=== PATIENT | female | born 1985 | race Caucasian/White ===

== ENCOUNTER 2016-06-06 16:28 | Emergency (ER) | payer MEDICAID ==
[~2016-06-06] VITALS: Ht 152.4 cm; Wt 40.4 kg
[~2016-06-06 16:28] MED LIST: ALBU0.08 NEB; KEPP10002 PO; PRED-503 PO; VENTAER INH; ZITH250T PO
[2016-06-06 16:55] VITALS: BP 115/81; PULSE 74; RESP 16; TEMP 98.6; O2SAT 100
[2016-06-06] MEDS ORDERED: RESP: ALBUTEROL 2.5 MG/IPRATROPIUM 0.5 MG NEB (SCH) NEB ONE (17:30)
[2016-06-06] MEDS ORDERED: CYCL5TAB PO (17:37)
[2016-06-06] MEDS ORDERED: LACTCAP8 PO (17:37)
[2016-06-06] MEDS ORDERED: [UNRECOGNIZED DRUG - CODE] PO (17:37)
--- NOTE | 2016-06-06 18:26 | PD ---
HPI Chief Complaint: Chest Pain Time Seen by Provider: 17:20 Travel History International Travel<30 days: No Contact w/Intl Traveler<30days: No Traveled to known affect area: No History of Present Illness HPI Patient is a 30 year old female with history of Asthma and Epilepsy, who comes in complaining of chest pain that started last night. She says that she has been coughing for about a week, but last night started to feel a squeezing pain across her chest. She says she used her albuterol last night with some relief of her symptoms. She denies fever or chills. She denies recent travel. She denies leg swelling or leg pain. She does have an implanted control in her arm. She denies any stimulant use. She denies any history of sudden cardiac . PFSH Past Medical History Hx Anticoagulant Therapy: No ADHD: Yes Asthma: Yes Anxiety: Yes Depression: Yes Cardiovascular Problems: No Chemotherapy: No Cerebrovascular Accident: No Diabetes: No Diminished Hearing: No GERD: Yes Headaches: Yes (CLUSTER) Musculoskeletal: Yes (SCOLIOSIS) Neurologic: Yes (SEIZURES) Psychiatric: Yes (PTSD) Respiratory: Yes (asthma) Immunizations Current: Yes Migraines: Yes Seizures: Yes ?: Not LMP: 05/11/16 Menopausal: No : 3 Para: 2 Ovarian Cysts: Yes Past Surgical History Section: Yes (X2) Hysterectomy: No Social History Alcohol Use: Yes (OCC) Tobacco Use: Yes (OCCASIONAL CIGARETTE) Substance Use: No Allergies-Medications (Allergen,Severity, Reaction): Coded Allergies: Nystatin (Verified Allergy, Severe, RASH, 06/06/16) Zoloft (Verified Allergy, Severe, SHAKING, NAUSEA, 06/06/16) Shellfish (Verified Allergy, Mild, DIFFICULTY BREATHING, 06/06/16) Reported Meds & Prescriptions Reported Meds & Active Scripts Active Albuterol Neb (Albuterol Sulfate) 2.5 Mg/3 Ml Neb 2.5 Mg NEB Q4HR NEB While awake Ventolin Hfa 18 GM Inh (Albuterol Sulfate) 90 Mcg/Act Aer 2 Puff INH Q4H PRN Reported Flexeril (Cyclobenzaprine HCl) 5 Mg Tab 5 Mg PO TID PRN Protein 1 Pow Pow 1 Pkt PO DAILY Probiotic (Lactobacillus Acidophilus) 1 Cap Cap 1 Cap PO DAILY Keppra (Levetiracetam) 1,000 Mg Tab 1.5 Tab PO BID Review of Systems Except as stated in HPI: all other systems reviewed are Neg General / Constitutional: No: Fever, Chills HENT: No: Headaches, Lightheadedness Cardiovascular: Positive: Chest Pain or Discomfort Respiratory: Positive: Cough, No: Shortness of Breath Gastrointestinal: No: Nausea, Vomiting Musculoskeletal: No: Edema, Pain Skin: No Rash, No Change in Pigmentation Neurologic: No: Weakness, Dizziness Physical Exam Narrative GENERAL: Awake and alert, in no acute distress. SKIN: Warm and dry. HEAD: Atraumatic. Normocephalic. EYES: Pupils equal and round. No scleral icterus. ENT: Mucous membranes pink and moist. NECK: Trachea midline. No JVD. CARDIOVASCULAR: Regular rate and rhythm. No murmur appreciated. Chest wall tender to palpation. RESPIRATORY: No accessory muscle use. Clear to auscultation. Breath sounds equal bilaterally. GASTROINTESTINAL: Abdomen soft, non-tender, nondistended. MUSCULOSKELETAL: No obvious deformities. No clubbing. No cyanosis. No edema. No calf tenderness. NEUROLOGICAL: Awake and alert. No obvious cranial nerve deficits. Motor grossly within normal limits. Normal speech. PSYCHIATRIC: Appropriate mood and affect; insight and judgment normal. Data Data Last Documented VS Vital Signs Date Time Temp Pulse Resp B/P Pulse Ox O2 Delivery O2 Flow Rate FiO2 06/06/16 18:34 89 17 121/74 97 Room Air 06/06/16 16:55 98.6 Orders Complete Blood Count With Diff (06/06/16 17:27) Comprehensive Metabolic Panel (06/06/16 17:27) Troponin I (06/06/16 17:27) D-Dimer (06/06/16 17:27) Ed Urine Pregnancytest Poc (06/06/16 17:27) Chest, Pa & Lat (06/06/16 ) Albuterol-Ipratropium Neb (Duoneb Neb) (06/06/16 17:30) Ketorolac Inj (Toradol Inj) (06/06/16 18:45) Labs Laboratory Tests Test 06/06/16 18:21 White Blood Count 10.8 TH/MM3 Red Blood Count 4.90 MIL/MM3 Hemoglobin 14.6 GM/DL Hematocrit 43.6 % Mean Corpuscular Volume 88.9 FL Mean Corpuscular Hemoglobin 29.8 PG Mean Corpuscular Hemoglobin 33.5 % Concent Red Cell Distribution Width 12.6 % Platelet Count 240 TH/MM3 Mean Platelet Volume 8.8 FL Neutrophils (%) (Auto) 62.9 % Lymphocytes (%) (Auto) 28.6 % Monocytes (%) (Auto) 4.3 % Eosinophils (%) (Auto) 0.9 % Basophils (%) (Auto) 3.3 % Neutrophils # (Auto) 6.7 TH/MM3 Lymphocytes # (Auto) 3.1 TH/MM3 Monocytes # (Auto) 0.5 TH/MM3 Eosinophils # (Auto) 0.1 TH/MM3 Basophils # (Auto) 0.4 TH/MM3 CBC Comment DIFF FINAL Differential Comment D-Dimer Quantitative (PE/DVT) LESS THAN 0.19 MG/L FEU Sodium Level 140 MEQ/L Potassium Level 3.8 MEQ/L Chloride Level 106 MEQ/L Carbon Dioxide Level 23.7 MEQ/L Anion Gap 10 MEQ/L Blood Urea Nitrogen 14 MG/DL Creatinine 0.76 MG/DL Estimat Glomerular Filtration 89 ML/MIN Rate Random Glucose 82 MG/DL Calcium Level 9.1 MG/DL Total Bilirubin 0.5 MG/DL Aspartate Amino Transf 21 U/L (AST/SGOT) Alanine Aminotransferase 23 U/L (ALT/SGPT) Alkaline Phosphatase 74 U/L Troponin I LESS THAN 0.02 NG/ML Total Protein 7.3 GM/DL Albumin 4.1 GM/DL [facility] Medical Decision Making Medical Screen Exam Complete: Yes Emergency Medical Condition: Yes Interpretation(s) ECG shows normal sinus rhythm, no ST elevation or depression, normal intervals. Differential Diagnosis Costochondritis versus pneumonia versus bronchitis versus asthma exacerbation Narrative Course Patient is a 30-year-old female comes in complaining of squeezing chest pain. Exam shows chest is tender to palpation. IV established, labs sent. ECG shows no signs of ischemia. Patient given DuoNeb treatment. Given a dose of Toradol for pain. Chest x-ray performed. CXR shows hyperexpanded lungs, no infiltrate. Labs, including Troponin and D-dimer are negative. Patient states she smoked a cigarette from someone prior to this starting and this made her nervous. She feels better after medication. Will be discharged with prescription for prednisone. Advised to use her inhaler as needed. Advised to follow up with her PMD. Advised to return to the ED as needed for any worsening symptoms. Diagnosis Primary Impression: Asthma Qualified Code: J45.901 - Asthma with acute exacerbation, unspecified asthma severity Patient Instructions: Asthma (ED), General Instructions Additional Instructions: Follow up with your Primary doctor. Take the steroids for the next 4 days. Avoid smoking. return to the ED as needed for any worsening symptoms. Scripts Prednisone 50 Mg Tab50 Mg PO DAILY 4 Days Ref 0 Prov:Gremaine Carlson MD 06/06/16 Disposition: 01 DISCHARGE HOME Condition: Stable Germaine Carlson MD Jun 06, 2016 18:25
[2016-06-06 18:31] LABS: AUTOMATED NEUTROPHIL # 6.7 TH/MM3 (1.8-7.7); BASOPHIL # 0.4 TH/MM3 (0-0.2); BASOPHIL % 3.3 % (0.0-2.0); EOSINOPHIL # 0.1 TH/MM3 (0-0.4); EOSINOPHIL % 0.9 % (0.0-4.0); HEMATOCRIT 43.6 % (35.0-46.0); HEMO FLAGS DIFF FINAL; LYMPH % 28.6 % (9.0-44.0); LYMPHOCYTE # 3.1 TH/MM3 (1.0-4.8); MEAN CELL VOLUME 88.9 FL (80.0-100.0); MEAN CORPUSCULAR HEMOGLOBIN 29.8 PG (27.0-34.0); MEAN CORPUSCULAR HGB CONC 33.5 % (32.0-36.0); MONO % 4.3 % (0.0-8.0); NEUT % 62.9 % (16.0-70.0); PLATELET COUNT 240 TH/MM3 (150-450); RED CELL DISTRIBUTION WIDTH 12.6 % (11.6-17.2); WHITE BLOOD COUNT 10.8 TH/MM3 (4.0-11.0)
[2016-06-06 18:34] VITALS: BP 121/74; PULSE 89; RESP 17; O2SAT 97
[2016-06-06 18:40] LABS: CHLORIDE 106 MEQ/L (98-107); POTASSIUM 3.8 MEQ/L (3.5-5.1); SODIUM (NA) 140 MEQ/L (136-145)
[2016-06-06 18:43] LABS: ANION GAP 10 MEQ/L (5-15); BICARBONATE 23.7 MEQ/L (21.0-32.0); BLOOD UREA NITROGEN 14 MG/DL (7-18)
[2016-06-06] MEDS ORDERED: KETOROLAC TROMETHAMINE 30 MG/ML (IVP) VIAL IV PUSH ONE (18:45)
[2016-06-06 18:46] LABS: ALT (GPT) 23 U/L (10-53); AST (GOT) 21 U/L (15-37)
[2016-06-06 18:47] LABS: GLOMERULAR FILTRATION RATE 89 ML/MIN (>89)
[2016-06-06 18:48] LABS: TOTAL BILIRUBIN ADULT 0.5 MG/DL (0.2-1.0)
[2016-06-06 18:49] LABS: ALKALINE PHOSPHATASE 74 U/L (45-117)
[2016-06-06 19:05] VITALS: BP 136/88; PULSE 70; RESP 18; O2SAT 100
[2016-06-06] MEDS ORDERED: PRED50 PO (19:09)
--- NOTE | 2016-06-06 19:10 | RADHPO ---
EXAM DATE/TIME: 06/06/2016 18:01 [place] COMPARISON: CHEST PA & LAT, May 24, 2014, 15:36. INDICATIONS : Chest congestion. Cough. MEDICAL HISTORY : None. SURGICAL HISTORY : None. ENCOUNTER: Initial ACUITY: 4 - 6 days PAIN SCORE: 5/10 LOCATION: Bilateral chest FINDINGS: PA and lateral views of the chest demonstrate the lungs to be symmetrically aerated without evidence of mass, infiltrate or effusion. The cardiomediastinal contours are unremarkable. Osseous structure s are intact. CONCLUSION: 1. No active disease. Minimal scoliosis. Maximino Olvera MD on June 06, 2016 at 19:07 Board Certified Radiologist. This report was verified electronically.
[2016-06-06 19:40] VITALS: RESP 17
--- NOTE | 2016-06-07 14:31 | EKG ---
Date Performed: 06/06/2016 Time Performed: 16:35:06 PTAGE: 30 years EKG: Sinus rhythm Rightward axis QRS changes in V2 may be due to LVH but cannot rule out septal infarct Abnormal ECG PREVIOUS TRACING : 09/25/2012 14.19 DOCTOR: Hector Bennett Interpretating Date/Time 06/07/2016 14:28:14
== END 2016-06-06 19:44 | disposition home or self-care (01) ==
LOC: PHED 16:28
DX: J45.901 Unspecified asthma with (acute) exacerbation (principal); G40.909 Epilepsy, unspecified, not intractable, without status epilepticus; F17.210 Nicotine dependence, cigarettes, uncomplicated
CPT/HCPCS: 71020; 80053; 84484; 84703; 85025; 85379; 93005; 94664; 96374; 99285; J1885

== ENCOUNTER 2016-07-19 15:45 | Emergency (ER) | payer MEDICAID ==
[~2016-07-19] VITALS: Ht 152.4 cm; Wt 42.0 kg
[~2016-07-19 15:45] MED LIST changes: +CYCL5TAB PO; +LACTCAP8 PO; -PRED-503 PO; +PRED50 PO; -ZITH250T PO; +[UNRECOGNIZED DRUG - CODE] PO
[2016-07-19 15:48] VITALS: BP 113/81; PULSE 75; RESP 18; TEMP 98.5; O2SAT 99
[2016-07-19] MEDS ORDERED: MOME17I EACH NARE (16:24)
[2016-07-19] MEDS ORDERED: METH4PAK PO (16:24)
--- NOTE | 2016-07-19 16:44 | PD ---
HPI Chief Complaint: ENT Complaint Time Seen by Provider: 16:44 Travel History International Travel<30 days: No Contact w/Intl Traveler<30days: No Traveled to known affect area: No History of Present Illness HPI 30 year old female presents to the ED for evaluation of one week history of ear pain, sinus congestion, sore throat, nonproductive cough. She endorses chills, headache. She denies fever. States that she saw her primary care provider and was diagnosed with sinusitis, prescribed steroids and an unknown antibiotic. She states that she had this steroids filled but the pharmacy was out of the antibiotic. She states that the [facility] pharmacy called 3 other pharmacies who also were out of the antibiotic. PFSH Past Medical History Hx Anticoagulant Therapy: No ADHD: Yes Asthma: Yes Anxiety: Yes Depression: Yes Cardiovascular Problems: No Chemotherapy: No Cerebrovascular Accident: No Diabetes: No Diminished Hearing: No GERD: Yes Headaches: Yes (CLUSTER) Musculoskeletal: Yes (SCOLIOSIS) Psychiatric: Yes (PTSD) Immunizations Current: Yes Migraines: Yes Seizures: Yes ?: Not Menopausal: No : 3 Para: 2 Ovarian Cysts: Yes Past Surgical History Section: Yes (X2) Hysterectomy: No Social History Alcohol Use: Yes (OCC) Tobacco Use: Yes (OCCASIONAL CIGARETTE) Substance Use: No Allergies-Medications (Allergen,Severity, Reaction): Coded Allergies: Nystatin (Verified Allergy, Severe, RASH, 07/19/16) Zoloft (Verified Allergy, Severe, SHAKING, NAUSEA, 07/19/16) Shellfish (Verified Allergy, Mild, DIFFICULTY BREATHING, 07/19/16) Reported Meds & Prescriptions Reported Meds & Active Scripts Active Augmentin (Amoxicillin-Clavulanate) 500-125 mg Tab 500 Mg PO BID 10 Days Albuterol Neb (Albuterol Sulfate) 2.5 Mg/3 Ml Neb 2.5 Mg NEB Q4HR NEB While awake Ventolin Hfa 18 GM Inh (Albuterol Sulfate) 90 Mcg/Act Aer 2 Puff INH Q4H PRN Reported Nasonex Nasal Sterling (Mometasone Furoate) 50 Mcg/Act Naspr 2 Sterling EACH NARE DAILY Methylprednisolone Dosepak (Methylprednisolone) 4 Dspk 4 Mg PO DIRECTED Per Pharmacist Direction Keppra (Levetiracetam) 1,000 Mg Tab 1 Tab PO BID Review of Systems Except as stated in HPI: all other systems reviewed are Neg Physical Exam Narrative GENERAL: Well-nourished, well-developed petite white female in no acute distress. SKIN: Warm and dry. HEAD: Normocephalic. Atraumatic. EYES: No scleral icterus. No injection or drainage. PERRLA. EOMI. ENT: Pear[place] tympanic membranes bilaterally. Nasal mucosa is moist. Oropharynx without erythema, edema or exudate. TTP of the facial sinuses. NECK: Supple, trachea midline. No JVD or lymphadenopathy. CARDIOVASCULAR: Regular rate and rhythm without murmurs, gallops, or rubs. No carotid bruits. 2+ DP and radial pulses bilaterally. RESPIRATORY: Breath sounds clear and equal bilaterally. No accessory muscle use. GASTROINTESTINAL: Abdomen soft, non-tender, nondistended. + Bowel sounds MUSCULOSKELETAL: No cyanosis, or edema. Ambulatory, moves the extremities spontaneously. BACK: Nontender without obvious deformity. No CVA tenderness. Data Data Last Documented VS Vital Signs Date Time Temp Pulse Resp B/P Pulse Ox O2 Delivery O2 Flow Rate FiO2 07/19/16 15:48 98.5 75 18 113/81 99 Orders Amoxicil-Clavulanate (Augmentin) (07/19/16 17:00) [facility] Medical Decision Making Medical Screen Exam Complete: Yes Emergency Medical Condition: Yes Differential Diagnosis viral syndrome versus sinusitis versus pharyngitis versus medication refill versus other Narrative Course 30 year old female presents to the ED for evaluation of one week history of ear pain, sinus congestion, sore throat, nonproductive cough. She endorses chills, headache. She denies fever. States that she saw her primary care provider and was diagnosed with sinusitis, prescribed steroids and an unknown antibiotic. She states that she had this steroids filled but the pharmacy was out of the antibiotic. Vitals reviewed. Physical exam reveals a nontoxic-appearing white female in no acute distress. [place] tympanic membranes bilaterally. Nasal mucosa moist, clear rhinorrhea. Oropharynx without erythema, edema, exudate. Tender to palpation of the facial sinuses. No anterior cervical lymphadenopathy. Patient was prescribed Augmentin 500 mg twice a day 10 days. First dose administered in the emergency room. She is instructed to take all other medications as prescribed, follow up with primary care provider. She indicated understanding of instructions. She is agreeable to the plan. She is stable and discharged home. Diagnosis Primary Impression: Sinusitis Qualified Code: J01.00 - Acute maxillary sinusitis, recurrence not specified Referrals: Ear / Nose / Throat Specialist Patient Instructions: General Instructions, Sinusitis (ED) Additional Instructions: Take all medication as prescribed, even if your symptoms resolve during the course of treatment. Follow up with your primary care provider. Return to the ED for any urgent or emergent medical condition. Med/Other Pt SpecificInfo: Prescription(s) given Scripts Amoxicillin-Clavulanate (Augmentin)500-125 mg [id number] Mg PO BID 10 Days Ref 0 Prov:Sharita Navarro MD 07/19/16 Disposition: 01 DISCHARGE HOME Condition: Stable Silvia Hernandez Jul 19, 2016 16:44
[2016-07-19] MEDS ORDERED: AUGM500T7 PO (16:53)
[2016-07-19] MEDS ORDERED: AMOXICILLIN/CLAVULANATE K 500 MG TAB PO ONE (17:00)
== END 2016-07-19 17:27 | disposition home or self-care (01) ==
LOC: PHED 15:45 → PHEFT 17:27
DX: J01.00 Acute maxillary sinusitis, unspecified (principal); J45.909 Unspecified asthma, uncomplicated; K21.9 Gastro-esophageal reflux disease without esophagitis; F41.9 Anxiety disorder, unspecified; F32.9 Major depressive disorder, single episode, unspecified; F43.10 Post-traumatic stress disorder, unspecified; F17.210 Nicotine dependence, cigarettes, uncomplicated
CPT/HCPCS: 99283

== ENCOUNTER 2016-10-22 13:07 | Emergency (ER) | payer MEDICAID ==
[~2016-10-22] VITALS: Ht 152.4 cm; Wt 40.1 kg
[~2016-10-22 13:07] MED LIST changes: +AUGM500T7 PO; -CYCL5TAB PO; -LACTCAP8 PO; +METH4PAK PO; +MOME17I EACH NARE; -PRED50 PO; -[UNRECOGNIZED DRUG - CODE] PO
[2016-10-22 13:14] VITALS: BP 121/96; PULSE 82; RESP 16; TEMP 98.2; O2SAT 97
[2016-10-22] MEDS ORDERED: MAGN1TAB14 PO (13:30)
[2016-10-22] MEDS ORDERED: RIBO1TAB2 PO (13:30)
[2016-10-22] MEDS ORDERED: ETON1IMP I-DERMAL (13:30)
[2016-10-22] MEDS ORDERED: TYLETAB34 PO (13:38)
--- NOTE | 2016-10-22 13:41 | PD ---
HPI Chief Complaint: Headache Time Seen by Provider: 13:30 Travel History International Travel<30 days: No Contact w/Intl Traveler<30days: No Traveled to known affect area: No History of Present Illness HPI The patient was seen and examined in the presence of the nurse. This patient complains of pain in face. She gets this frequently. She has ENT physician. He does not have purulent discharge or fever or injury. No fever. Symptoms severity is mild to moderate. PFSH Past Medical History Hx Anticoagulant Therapy: No ADHD: Yes Asthma: Yes Anxiety: Yes Depression: Yes Cardiovascular Problems: No Chemotherapy: No Cerebrovascular Accident: No Diabetes: No Diminished Hearing: No GERD: Yes Headaches: Yes (CLUSTER) Musculoskeletal: Yes (SCOLIOSIS) Psychiatric: Yes (PTSD) Immunizations Current: Yes Migraines: Yes Seizures: Yes Influenza Vaccination: No ?: Not Menopausal: No : 3 Para: 2 Ovarian Cysts: Yes Past Surgical History Section: Yes (X2) Hysterectomy: No Social History Alcohol Use: Yes (OCC) Tobacco Use: Yes (OCCASIONAL CIGARETTE) Substance Use: No Allergies-Medications (Allergen,Severity, Reaction): Coded Allergies: Nystatin (Verified Allergy, Severe, RASH, 10/22/16) Zoloft (Verified Allergy, Severe, SHAKING, NAUSEA, 10/22/16) Shellfish (Verified Allergy, Mild, DIFFICULTY BREATHING, 10/22/16) Reported Meds & Prescriptions Reported Meds & Active Scripts Active Tylenol-Codeine #3 (Acetaminophen-Codeine) 300-30 mg Tab 1 Tab PO Q6HR PRN Reported Vitamin B-2 (Riboflavin) 100 Mg Tab Unknown Dose PO DAILY Magnesium 400 Mg Tab 400 Mg PO DAILY Nexplanon Implant (Etonogestrel Implant) 68 Mg Imp 68 Mg I-DERMAL ONCE Keppra (Levetiracetam) 1,000 Mg Tab 0.5 Tab PO BID Review of Systems General / Constitutional: No: Fever Cardiovascular: No: Chest Pain or Discomfort Respiratory: No: Cough Gastrointestinal: No: Vomiting Physical Exam Narrative NEUROLOGICAL: Awake and alert. Pupils are equal round and reactive. Motor and sensory grossly within normal limits. Five out of 5 muscle strength in all muscle groups. Normal speech. NECK: Symmetrical appearance, midline trachea. No mass or crepitus. Thyroid without enlargement, tenderness, or mass. SKIN: Focused skin assessment reveals no rash or ulcers. Skin is warm and dry. Palpation shows no induration or nodules. GASTROINTESTINAL: Abdomen soft, non-tender, nondistended. Positive bowel sounds. No hepato-splenomegaly, or palpable masses. No guarding. Data Data Last Documented VS Vital Signs Date Time Temp Pulse Resp B/P Pulse Ox O2 Delivery O2 Flow Rate FiO2 10/22/16 13:14 98.2 82 16 121/96 97 MDM Medical Decision Making Medical Screen Exam Complete: Yes Emergency Medical Condition: Yes Medical Record Reviewed: Yes Differential Diagnosis Sinusitis, chronic pain, tic [place] Narrative Course I have reviewed the patient's electronic medical record. Patient is neurologically intact. No red flags to suggest emergent imaging is indicated. I wrote her 10 Tylenol 3 to use as needed Stable for outpatient follow-up Diagnosis Primary Impression: Chronic facial pain Additional Impression: Headache Qualified Code: R51 - Nonintractable episodic headache, unspecified headache type Additional Instructions: The patient was advised to follow up with their physician and return if they worsen. The patient was warned about potential sedation for the medications they will receive on prescription. Med/Other Pt SpecificInfo: Prescription(s) given Scripts Acetaminophen-Codeine (Tylenol-Codeine #3)300-30 mg Tab1 Tab PO Q6HR PRN (PAIN) #10 TAB Ref 0 Prov:Chris Goss MD 10/22/16 Disposition: 01 DISCHARGE HOME Condition: Stable Chris Goss MD Oct 22, 2016 13:41
== END 2016-10-22 13:50 | disposition home or self-care (01) ==
LOC: PHED 13:07
DX: R51 Headache (principal); J45.909 Unspecified asthma, uncomplicated; K21.9 Gastro-esophageal reflux disease without esophagitis
CPT/HCPCS: 99283

== ENCOUNTER 2016-12-18 08:12 | Emergency (ER) | payer MEDICAID ==
[~2016-12-18] VITALS: Ht 152.4 cm; Wt 40.5 kg
[~2016-12-18 08:12] MED LIST changes: -ALBU0.08 NEB; -AUGM500T7 PO; +ETON1IMP I-DERMAL; +MAGN1TAB14 PO; -METH4PAK PO; -MOME17I EACH NARE; +RIBO1TAB2 PO; +TYLETAB34 PO; -VENTAER INH
[2016-12-18 08:16] VITALS: BP 115/77; PULSE 75; RESP 16; TEMP 97.8; O2SAT 99
--- NOTE | 2016-12-18 08:41 | PD ---
HPI Chief Complaint: Abdominal Pain Time Seen by Provider: 08:31 Travel History International Travel<30 days: No Contact w/Intl Traveler<30days: No Traveled to known affect area: No History of Present Illness HPI The patient was seen and examined in the presence of the nurse. This patient complains of abdominal pain. Location is right lower quadrant. Severity is moderate. Duration is 2-3 days. No alleviating factors. She denies fever or diarrhea. She does not think she is . PFSH Past Medical History Hx Anticoagulant Therapy: No ADHD: Yes Asthma: Yes Anxiety: Yes Depression: Yes Cardiovascular Problems: No Chemotherapy: No Cerebrovascular Accident: No Diabetes: No Diminished Hearing: No GERD: Yes Headaches: Yes (CLUSTER) Musculoskeletal: Yes (SCOLIOSIS) Neurologic: Yes (SEIZURES) Psychiatric: Yes (PTSD) Respiratory: Yes (asthma) Immunizations Current: Yes Migraines: Yes Seizures: Yes ?: Not LMP: LAST MONTH Menopausal: No : 3 Para: 3 Miscarriage: 1 Ovarian Cysts: Yes Past Surgical History Section: Yes (X2) Hysterectomy: No Social History Alcohol Use: Yes (OCC) Tobacco Use: No (denies) Substance Use: No Allergies-Medications (Allergen,Severity, Reaction): Coded Allergies: nystatin (Unverified Allergy, Severe, RASH, 12/18/16) sertraline (Unverified Allergy, Severe, SHAKING, NAUSEA, 12/18/16) shellfish derived (Unverified Allergy, Mild, DIFFICULTY BREATHING, 12/18/16) Reported Meds & Prescriptions Reported Meds & Active Scripts Active Tylenol-Codeine #3 (Acetaminophen-Codeine) 300-30 mg Tab 1 Tab PO Q6HR PRN Reported Vitamin B-2 (Riboflavin) 100 Mg Tab Unknown Dose PO DAILY Magnesium 400 Mg Tab 400 Mg PO DAILY Nexplanon Implant (Etonogestrel Implant) 68 Mg Imp 68 Mg I-DERMAL ONCE Keppra (Levetiracetam) 1,000 Mg Tab 0.5 Tab PO BID Review of Systems General / Constitutional: No: Fever Eyes: No: Visual changes HENT: No: Headaches Cardiovascular: No: Chest Pain or Discomfort Respiratory: No: Shortness of Breath Gastrointestinal: Positive: Nausea, Abdominal Pain Genitourinary: Positive: Pelvic Pain, No: Dysuria Musculoskeletal: No: Pain Skin: No Rash Neurologic: No: Weakness Psychiatric: No: Depression Endocrine: No: Polydipsia Hematologic/Lymphatic: No: Easy Bruising Physical Exam Narrative GENERAL: Well-nourished, well-developed patient with abdominal pain. SKIN: Focused skin assessment reveals no rash and nodules. Skin is Warm and dry. HEAD: Atraumatic. Normocephalic. EYES: Pupils equal and round. No scleral icterus. No injection or drainage. ENT: No nasal bleeding or discharge. Mucous membranes pink and moist. NECK: Trachea midline. No JVD. CARDIOVASCULAR: Regular rate and rhythm. No murmur appreciated. RESPIRATORY: No accessory muscle use. Clear to auscultation. Breath sounds equal bilaterally. GASTROINTESTINAL: Abdomen soft, right lower quadrant is tender without rebound or guarding, nondistended. Hepatic and splenic margins not palpable. MUSCULOSKELETAL: No obvious deformities. No clubbing. No cyanosis. No edema. NEUROLOGICAL: Awake and alert. No obvious cranial nerve deficits. Motor grossly within normal limits. Normal speech. PSYCHIATRIC: Appropriate mood and affect; insight and judgment normal. Pelvic: Has a scant white vaginal discharge but no cervical motion tenderness. No bleeding. No adnexal mass Data Data Last Documented VS Vital Signs Date Time Temp Pulse Resp B/P (MAP) Pulse Ox O2 Delivery O2 Flow Rate FiO2 12/18/16 08:16 97.8 75 16 115/77 (90) 99 Orders Orders Ed Urine Pregnancytest Poc (12/18/16 08:38) Urinalysis - C+S If Indicated (12/18/16 08:38) Iv Access Insert/Monitor (12/18/16 08:38) Complete Blood Count With Diff (12/18/16 08:38) Basic Metabolic Panel (Bmp) (12/18/16 08:38) Ct Abd/Pel W Iv Contrast(Rout) (12/18/16 ) Wet Prep Profile (12/18/16 08:49) Gc And Chlamydia Pcr (12/18/16 08:49) Iohexol 350 Inj (Omnipaque 350 Inj) (12/18/16 09:52) Urine Culture (12/18/16 08:55) Labs Laboratory Tests Test 12/18/16 08:55 White Blood Count 5.9 TH/MM3 Red Blood Count 4.85 MIL/MM3 Hemoglobin 14.4 GM/DL Hematocrit 42.8 % Mean Corpuscular Volume 88.3 FL Mean Corpuscular Hemoglobin 29.7 PG Mean Corpuscular Hemoglobin Concent 33.7 % Red Cell Distribution Width 12.6 % Platelet Count 195 TH/MM3 Mean Platelet Volume 8.6 FL Neutrophils (%) (Auto) 57.3 % Lymphocytes (%) (Auto) 33.8 % Monocytes (%) (Auto) 4.5 % Eosinophils (%) (Auto) 2.5 % Basophils (%) (Auto) 1.9 % Neutrophils # (Auto) 3.4 TH/MM3 Lymphocytes # (Auto) 2.0 TH/MM3 Monocytes # (Auto) 0.3 TH/MM3 Eosinophils # (Auto) 0.1 TH/MM3 Basophils # (Auto) 0.1 TH/MM3 CBC Comment DIFF FINAL Differential Comment Urine Collection Type CLEAN CATCH Urine Color YELLOW Urine Turbidity CLEAR Urine pH 6.0 Urine Specific Maud 1.016 Urine Protein NEG mg/dL Urine Glucose (UA) NEG mg/dL Urine Ketones NEG mg/dL Urine Occult Blood NEG Urine Nitrite NEG Urine Bilirubin NEG Urine Leukocyte Esterase NEG Urine WBC 3-5 /hpf Urine Squamous Epithelial Cells > 8 /hpf Urine Amorphous Sediment FEW Urine Bacteria MOD /hpf Microscopic Urinalysis Comment CULTURE INDICATED Urine Collection Time 0855 Clue Cells (Wet Prep) NONE SEEN Vaginal Trichomonas (Wet Prep) NONE SEEN Vaginal Yeast (Wet Prep) NONE SEEN Blood Urea Nitrogen 13 MG/DL Creatinine 0.71 MG/DL Random Glucose 85 MG/DL Calcium Level 9.1 MG/DL Sodium Level 137 MEQ/L Potassium Level 3.9 MEQ/L Chloride Level 106 MEQ/L Carbon Dioxide Level 24.3 MEQ/L Anion Gap 7 MEQ/L Estimat Glomerular Filtration Rate 96 ML/MIN [facility] Medical Decision Making Medical Screen Exam Complete: Yes Emergency Medical Condition: Yes Medical Record Reviewed: Yes Differential Diagnosis Differential diagnosis includes PID, ectopic , ovarian cyst, ovarian torsion, endometriosis, appendicitis Narrative Course I have reviewed the patient's electronic medical record. He has been here for asthma multiple times and related issues Urine is negative Urinalysis is not suspicious for infection IV placed CBC is normal Metabolic profile is normal CT of abdomen and pelvis with IV contrast done to evaluate for appendicitis. Exam is not convincing for PID. wet prep is negative GC and chlam swab sent CT results are reviewed with the patient. There is incidental renal cysts. Appendix not definitively seen but there is no inflammatory changes in the right lower quadrant to suggest appendicitis. Clinical suspicion after CT scan is very low. When went to reevaluate her she is resting completely without pain He is to call her primary physician Tuesday for follow-up and return if she worsens Diagnosis Primary Impression: Abdominal pain Qualified Codes: R10.31 - Right lower quadrant pain Additional Instructions: The patient was advised to follow up with their physician and return if they worsen. Med/Other Pt SpecificInfo: Other Disposition: DISCHARGE HOME Condition: Stable Chris Goss MD Dec 18, 2016 08:41
[2016-12-18 09:06] LABS: AUTOMATED NEUTROPHIL # 3.4 TH/MM3 (1.8-7.7); BASOPHIL # 0.1 TH/MM3 (0-0.2); BASOPHIL % 1.9 % (0.0-2.0); EOSINOPHIL # 0.1 TH/MM3 (0-0.4); EOSINOPHIL % 2.5 % (0.0-4.0); HEMATOCRIT 42.8 % (35.0-46.0); HEMO FLAGS DIFF FINAL; LYMPH % 33.8 % (9.0-44.0); MEAN CELL VOLUME 88.3 FL (80.0-100.0); MEAN CORPUSCULAR HEMOGLOBIN 29.7 PG (27.0-34.0); MEAN CORPUSCULAR HGB CONC 33.7 % (32.0-36.0); MONO % 4.5 % (0.0-8.0); NEUT % 57.3 % (16.0-70.0); PLATELET COUNT 195 TH/MM3 (150-450); RED BLOOD COUNT 4.85 MIL/MM3 (4.00-5.30); RED CELL DISTRIBUTION WIDTH 12.6 % (11.6-17.2); WHITE BLOOD COUNT 5.9 TH/MM3 (4.0-11.0)
[2016-12-18 09:14] LABS: POTASSIUM 3.9 MEQ/L (3.5-5.1)
[2016-12-18 09:17] LABS: BICARBONATE 24.3 MEQ/L (21.0-32.0)
[2016-12-18 09:35] LABS: BLOOD, URINE NEG (NEG); GLUCOSE,URINE NEG (NEG); KETONE, URINE NEG (NEG); NITRITE,URINE NEG (NEG)
[2016-12-18 09:50] LABS: METHOD OF COLLECTION CLEAN CATCH; URINE COLOR YELLOW (YELLW/STRAW)
[2016-12-18 09:52] LABS: BACTERIA, URINE MOD /hpf; COMMENT (UR) CULTURE INDICATED; COMMENT2 (UR) MUCOUS PRESENT; CULTURE IF INDICATED CULTURE INDICATED; SQUAMOUS EPITHELIAL CELL URINE > 8 /hpf (0-5)
[2016-12-18] MEDS ORDERED: IOHEXOL 350 MG/ML 10 ML VIAL (for RAD DIAG) IVCONTRAST ONE (09:52)
--- NOTE | 2016-12-18 10:02 | RADRPT ---
EXAM DATE/TIME: 12/18/2016 09:41 [place] COMPARISON: CT ABDOMEN & PELVIS W CONTRAST, May 15, 2007, 10:53. INDICATIONS : Right lower quadrant pain, nausea, vaginal discharge. IV CONTRAST: 71 cc Omnipaque 350 (iohexol) IV ORAL CONTRAST: No oral contrast ingested. RADIATION DOSE: 4.44 CTDIvol (mGy) MEDICAL HISTORY : Seizures. Asthma, scoliosis, ovarian cysts. SURGICAL HISTORY : None. ENCOUNTER: Initial ACUITY: 3 days PAIN SCALE: 6/10 LOCATION: Right lower quadrant TECHNIQUE: Volumetric scanning of the abdomen and pelvis was performed. Using automated exposure control and ad justment of the mA and/or kV according to patient size, radiation dose was kept as low as reasonably achievable to obtain optimal diagnostic quality images. DICOM format image data is available electro nically for review and comparison. FINDINGS: Lung bases are clear. Osseous structures are intact. No pleural or pericardial effusions are seen. Li vickey, gallbladder, left kidney, spleen, pancreas, adrenal glands are normal in appearance. There is a tiny cyst at the upper pole right kidney measuring 7 mm, and a cyst at the midpole measuring 7.5 mm. There are 2 nonobstructing calculi at the midpole of the right kidney measuring 3.1 mm and 1.8 mm. Th ere is no adenopathy or aneurysm. Urinary bladder, uterus unremarkable. No evidence of bowel obstruct ion, free fluid, or free air. A left ovarian cyst is suspected measuring 1.9 cm. No inflammatory raza ges are seen within the abdomen or pelvis. The appendix is no definitively visualized. CONCLUSION: 1. Simple cyst left ovary. 2. Nonobstructing right renal calculi and simple cysts right kidney. 3. No inflammatory changes are present. Iglesia Bhatt MD on December 18, 2016 at 9:54 Board Certified Radiologist. This report was verified electronically.
[2016-12-18 15:52] LABS: CHLAMYDIA PCR NOT DETECTED (NOT DETECT); NEISSERIA PCR NOT DETECTED (NOT DETECT)
== END 2016-12-18 10:26 | disposition home or self-care (01) ==
LOC: PHED 08:12
DX: R10.31 Right lower quadrant pain (principal); Z86.59 Personal history of other mental and behavioral disorders; Z87.09 Personal history of other diseases of the respiratory system; Z87.19 Personal history of other diseases of the digestive system; Z87.39 Personal history of other diseases of the musculoskeletal system and connective tissue; Z86.69 Personal history of other diseases of the nervous system and sense organs
CPT/HCPCS: 74177; 80048; 81001; 84703; 85025; 87086; 87210; 87491; 87591; 99285; Q9967

== ENCOUNTER 2017-04-14 17:17 | Emergency (ER) | payer MEDICAID ==
[~2017-04-14] VITALS: Ht 152.4 cm; Wt 42.0 kg
[~2017-04-14 17:17] MED LIST changes: -MAGN1TAB14 PO; +MAGN400T3 PO
[2017-04-14 17:21] VITALS: BP 112/61; PULSE 81; RESP 16; TEMP 98.4; O2SAT 100
[2017-04-14] MEDS ORDERED: PRED20 PO (18:07)
[2017-04-14] MEDS ORDERED: AZIT250T3 PO (18:07)
[2017-04-14] MEDS ORDERED: ALBU0.08 NEB (18:07)
--- NOTE | 2017-04-14 18:08 | PD ---
HPI Chief Complaint: Cold / Flu Symptoms Time Seen by Provider: 17:54 Travel History International Travel<30 days: No Contact w/Intl Traveler<30days: No Traveled to known affect area: No History of Present Illness HPI 31-year-old female here for evaluation of productive cough, wheezing, fever 3 days. She reports symptoms started as a mild URI with sore throat, nasal congestion, cough. All symptoms resolved with the exception of the cough. She now has wheezing and intermittent shortness of breath with coughing episodes. She reports colored sputum. Subjective fevers. History of asthma. No sick contacts at home. Severity is moderate. No aggravating factors. Mild improvement with home albuterol nebs. PFSH Past Medical History Hx Anticoagulant Therapy: No ADHD: Yes Asthma: Yes Anxiety: Yes Depression: Yes Cardiovascular Problems: No Chemotherapy: No Cerebrovascular Accident: No Diabetes: No Diminished Hearing: No GERD: Yes Headaches: Yes (CLUSTER) Musculoskeletal: Yes (SCOLIOSIS) Neurologic: Yes (SEIZURES) Psychiatric: Yes (PTSD) Respiratory: Yes (asthma) Immunizations Current: Yes Migraines: Yes Seizures: Yes Tetanus Vaccination: > 5 Years Influenza Vaccination: No ?: Not LMP: 2 wks ago Menopausal: No : 3 Para: 3 Miscarriage: 1 Ovarian Cysts: Yes Past Surgical History Section: Yes (X2) Hysterectomy: No Social History Alcohol Use: Yes (OCC) Tobacco Use: No Substance Use: No Allergies-Medications (Allergen,Severity, Reaction): Coded Allergies: nystatin (Unverified Allergy, Severe, RASH, 04/14/17) sertraline (Unverified Allergy, Severe, SHAKING, NAUSEA, 04/14/17) shellfish derived (Unverified Allergy, Mild, DIFFICULTY BREATHING, ) Reported Meds & Prescriptions Reported Meds & Active Scripts Active Tylenol-Codeine #3 (Acetaminophen-Codeine) 300-30 mg Tab 1 Tab PO Q6HR PRN Reported Nexplanon Implant (Etonogestrel Implant) 68 Mg Imp 68 Mg I-DERMAL ONCE Keppra (Levetiracetam) 1,000 Mg Tab 0.5 Tab PO BID Review of Systems Except as stated in HPI: all other systems reviewed are Neg General / Constitutional: Positive: Fever Eyes: No: Visual changes HENT: No: Headaches Cardiovascular: No: Chest Pain or Discomfort Respiratory: Positive: Cough, Shortness of Breath, Wheezing Gastrointestinal: No: Abdominal Pain Genitourinary: No: Dysuria Physical Exam Narrative GENERAL: Alert female. Appears ill but not toxic SKIN: Warm and dry. HEAD: Normocephalic. EYES: No injection or drainage. NECK: Supple, trachea midline. No JVD or lymphadenopathy. CARDIOVASCULAR: Regular rate and rhythm without murmurs, gallops, or rubs. RESPIRATORY: Breath sounds equal bilaterally. No accessory muscle use. Mild expiratory wheezes. Rhonchorous cough. GASTROINTESTINAL: Abdomen soft, non-tender, nondistended. Data Data Last Documented VS Vital Signs Date Time Temp Pulse Resp B/P (MAP) Pulse Ox O2 Delivery O2 Flow Rate FiO2 04/14/17 17:21 98.4 81 16 112/61 (78) 100 MDM Medical Decision Making Medical Screen Exam Complete: Yes Emergency Medical Condition: Yes Differential Diagnosis Pneumonia, bronchitis, influenza, URI Narrative Course 31-year-old female here with reported productive cough, wheezing, fever times a days. Her vital signs are stable. She is afebrile. No respiratory distress. Mild expiratory wheezes which clear with cough. Given the length of her symptoms she will be treated with azithromycin, prednisone, albuterol. Instructed to follow-up with her PCP she agrees to plan Diagnosis Primary Impression: Bronchitis Additional Impression: Reactive airway disease Qualified Codes: J45.909 - Unspecified asthma, uncomplicated Referrals: [facility] Additional Instructions: Take the medications as prescribed. Albuterol inhaler/nebulizer every 4-6 hours as needed. Stay well hydrated. Follow-up with her primary doctor for recheck Scripts Albuterol Neb (Albuterol Neb) 2.5 Mg/3 Ml Neb 2.5 MG NEB Q4HR NEB Y for SHORTNESS OF BREATH, #60 NEBULE 0 Refills Prov: Vane SanchezP 04/14/17 Prednisone (Prednisone) 20 Mg Tab 40 MG PO DAILY, #10 TAB 0 Refills Take 40 mg (2 tablets) daily for 5 days Prov: Vane Sanchez 04/14/17 Azithromycin (Azithromycin) 250 Mg Tab 250 MG PO DIRECTED for Infection, #6 TAB 0 Refills Take 2 tabs (500 mg) on day 1 then 1 tab daily x 4 days. Prov: Vane Sanchez 04/14/17 Disposition: 01 DISCHARGE HOME Condition: Stable Vane Sanchez Apr 14, 2017 18:08
== END 2017-04-14 18:17 | disposition home or self-care (01) ==
LOC: PHEFT 17:17
DX: J40 Bronchitis, not specified as acute or chronic (principal); J45.909 Unspecified asthma, uncomplicated; K21.9 Gastro-esophageal reflux disease without esophagitis; R56.9 Unspecified convulsions
CPT/HCPCS: 99284

== ENCOUNTER 2017-05-13 22:49 | Emergency (ER) | payer MEDICAID ==
[~2017-05-13] VITALS: Ht 152.4 cm; Wt 43.0 kg
[~2017-05-13 22:49] MED LIST changes: +ALBU0.08 NEB; +AZIT250T3 PO; -MAGN400T3 PO; +PRED20 PO; -RIBO1TAB2 PO
[2017-05-13 22:52] VITALS: BP 118/73; PULSE 76; RESP 18; TEMP 98.1; O2SAT 98
--- NOTE | 2017-05-13 23:12 | PD ---
HPI Chief Complaint: Abdominal Pain Time Seen by Provider: 23:09 Travel History International Travel<30 days: No Contact w/Intl Traveler<30days: No Traveled to known affect area: No History of Present Illness HPI 31-year-old female patient presents to the ER today, is having several days' history of lower abdominal discomfort, nausea, burning on urination, and had been seen by [facility] today and diagnosed with a UTI, has a prescription for Macrobid which she has not yet had a chance to get from the pharmacy. She comes to the ER today because she states that she is having worsening in her lower abdominal discomfort. She denies any unusual vaginal discharge, or any new symptoms. Pain is currently rated as 7 out of 10. Modifying Factors: None Associated Signs & Symptoms: Lower abdominal discomfort, nausea, dysuria Risk Factors: Diagnosed with UTI PFSH Past Medical History Hx Anticoagulant Therapy: No ADHD: Yes Asthma: Yes Anxiety: Yes Depression: Yes Cardiovascular Problems: No Chemotherapy: No Cerebrovascular Accident: No Diabetes: No Diminished Hearing: No GERD: Yes Headaches: Yes (CLUSTER) Musculoskeletal: Yes (SCOLIOSIS) Neurologic: Yes (SEIZURES) Psychiatric: Yes (PTSD) Respiratory: Yes (Asthma ) Immunizations Current: Yes Migraines: Yes Seizures: Yes LMP: 05/09/2017 Menopausal: No : 3 Para: 3 Miscarriage: 1 Ovarian Cysts: Yes Past Surgical History Section: Yes (X2) Hysterectomy: No Social History Alcohol Use: Yes (OCC) Tobacco Use: No Substance Use: No Allergies-Medications (Allergen,Severity, Reaction): Coded Allergies: nystatin (Verified Allergy, Severe, RASH, 05/13/17) sertraline (Verified Allergy, Severe, SHAKING, NAUSEA, 05/13/17) shellfish derived (Verified Allergy, Mild, DIFFICULTY BREATHING, 05/13/17) Reported Meds & Prescriptions Reported Meds & Active Scripts Active Albuterol Neb (Albuterol Sulfate) 2.5 Mg/3 Ml Neb 2.5 Mg NEB Q4HR NEB PRN Prednisone 20 Mg Tab 40 Mg PO DAILY Take 40 mg (2 tablets) daily for 5 days Azithromycin 250 Mg Tab 250 Mg PO DIRECTED Take 2 tabs (500 mg) on day 1 then 1 tab daily x 4 days. Tylenol-Codeine #3 (Acetaminophen-Codeine) 300-30 mg Tab 1 Tab PO Q6HR PRN Reported Nexplanon Implant (Etonogestrel Implant) 68 Mg Imp 68 Mg I-DERMAL ONCE Keppra (Levetiracetam) 1,000 Mg Tab 0.5 Tab PO BID Review of Systems Except as stated in HPI: all other systems reviewed are Neg Physical Exam Narrative GENERAL: Well-developed young female patient currently in mild distress. Awake and oriented 3. SKIN: Focused skin assessment warm/dry. HEAD: Atraumatic. Normocephalic. EYES: Pupils equal and round. No scleral icterus. No injection or drainage. ENT: No nasal bleeding or discharge. Mucous membranes pink and moist. NECK: Trachea midline. No JVD. CARDIOVASCULAR: Regular rate and rhythm. No murmur appreciated. RESPIRATORY: No accessory muscle use. Clear to auscultation. Breath sounds equal bilaterally. GASTROINTESTINAL: Abdomen soft, mild suprapubic tenderness without guarding or rebound, nondistended. Hepatic and splenic margins not palpable. GENITOURINARY: Normal external genitalia without lesions or erythema. Vaginal vault without blood or drainage. Cervical os was closed without drainage. No cervical motion tenderness. Uterus nontender and nonenlarged. Bilateral adnexa nontender without masses. MUSCULOSKELETAL: No obvious deformities. No clubbing. No cyanosis. No edema. NEUROLOGICAL: Awake and alert. No obvious cranial nerve deficits. Motor grossly within normal limits. Normal speech. PSYCHIATRIC: Appropriate mood and affect; insight and judgment normal. Data Data Last Documented VS Vital Signs Date Time Temp Pulse Resp B/P (MAP) Pulse Ox O2 Delivery O2 Flow Rate FiO2 05/13/17 22:52 98.1 76 18 118/73 (88) 98 Orders Orders Ua Includes Microscopic (05/13/17 23:09) Wet Prep Profile (05/13/17 23:09) Gc And Chlamydia Pcr (05/13/17 23:09) Ed Urine Pregnancytest Poc (05/13/17 23:09) Labs Laboratory Tests Test 05/13/17 23:15 05/13/17 23:40 Urine Color YELLOW Urine Turbidity CLEAR Urine pH 6.5 Urine Specific [place] 1.020 Urine Protein NEG mg/dL Urine Glucose (UA) NEG mg/dL Urine Ketones NEG mg/dL Urine Occult Blood NEG Urine Nitrite NEG Urine Bilirubin NEG Urine Leukocyte Esterase SMALL Urine RBC 0-3 /hpf Urine WBC 6-8 /hpf Urine Squamous Epithelial Cells 6-8 /hpf Urine Bacteria FEW /hpf Clue Cells (Wet Prep) NONE SEEN Vaginal Trichomonas (Wet Prep) NONE SEEN Vaginal Yeast (Wet Prep) NONE SEEN MDM Medical Decision Making Medical Screen Exam Complete: Yes Emergency Medical Condition: Yes Medical Record Reviewed: Yes Interpretation(s) Laboratory Tests Test 05/13/17 23:15 05/13/17 23:40 Urine Leukocyte Esterase SMALL (NEG) Urine WBC 6-8 /hpf (0-5) Urine Squamous Epithelial Cells 6-8 /hpf (0-5) Urine Bacteria FEW /hpf (NONE) Differential Diagnosis Lower abdominal discomfort, nausea, dysuria: UTI versus gastroenteritis versus cervicitis Narrative Course Lab work shows WBCs in the urine and she is symptomatic, indicative of underlying UTI. She is not . Abdomen is fairly benign and I'm not suspecting an acute intra-abdominal process. Pelvic exam is not significantly remarkable for any underlying infection. She has a negative wet prep. She has not had any new partners. At this point, my plan would be to release her and have her continue treatment for UTI. Return for any worsening in symptoms as needed. The plan has been discussed with her and she states understanding. Diagnosis Primary Impression: UTI (urinary tract infection) Disposition: DISCHARGE HOME Condition: Stable Adilene Campos MD May 13, 2017 23:12
[2017-05-13 23:22] LABS: BILIRUBIN, URINE NEG (NEG); BLOOD, URINE NEG (NEG); GLUCOSE,URINE NEG (NEG); KETONE, URINE NEG (NEG); NITRITE,URINE NEG (NEG); PH, URINE 6.5 (5.0-8.5); URINE LEUKOCYTE ESTERASE SMALL (NEG)
[2017-05-13 23:25] LABS: URINE COLOR YELLOW (YELLW/STRAW)
[2017-05-13 23:29] LABS: BACTERIA, URINE FEW /hpf; RBC, URINE 0-3 /hpf (0-3)
== END 2017-05-14 00:06 | disposition home or self-care (01) ==
LOC: PHED 22:49
DX: N39.0 Urinary tract infection, site not specified (principal); J45.909 Unspecified asthma, uncomplicated; K21.9 Gastro-esophageal reflux disease without esophagitis; F90.9 Attention-deficit hyperactivity disorder, unspecified type; F32.9 Major depressive disorder, single episode, unspecified; F43.10 Post-traumatic stress disorder, unspecified; M41.9 Scoliosis, unspecified; Z79.899 Other long term (current) drug therapy; Z88.8 Allergy status to other drugs, medicaments and biological substances
CPT/HCPCS: 81001; 84703; 87210; 87491; 87591; 99284